=== PATIENT | male | born 1960 | race Caucasian/White ===

== ENCOUNTER 2020-03-15 01:00 | Emergency (ER) | payer BC ==
--- NOTE | 2020-03-15 02:08 | EDM.PDOC ---
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 Thi s is stable. The pt is on dialysis and he will be dialyized tomorrow. He has been very sob this pm. His weight is up. He has swelling in both legs. Onset: Gradual Duration: Hour(s): Location: Reports: Chest, Lower Extremity, Left, Lower Extremity, Right, Generalized Associated Symptoms: Reports: Shortness of Breath, Weakness - Related Data Allergies Allergy/AdvReac Type Severity Reaction Status Date / Time No Known Allergies Allergy Verified 03/15/20 01:04 Home Meds: Home Meds Calcium Acetate 2 tab PO TIDMEALS 03/15/20 [History] Escitalopram [Lexapro] 10 mg PO DAILY 03/15/20 [History] Gabapentin [Neurontin] 100 mg PO BID 03/15/20 [History] Insulin Aspart [NovoLOG] 0 - 9 unit SUBCUT WITHMEALSANDBED 03/15/20 [History] Insulin Glargine,Hum.Rec.Anlog [Basaglar Kwikpen U-100] 10 unit SQ BID 03/15/20 [History] NIFEdipine [Nifedipine ER] 60 mg PO BID 03/15/20 [History] Pembrolizumab [Keytruda] 100 mg IV Q21D 03/15/20 [History] atorvaSTATin [Lipitor] 10 mg PO BEDTIME 03/15/20 [History] carvediloL [Coreg] 6.25 mg PO BID 03/15/20 [History] Past Medical History Cardiovascular History: Reports: Heart Murmur, High Cholesterol, Hypertension Genitourinary History: Reports: Dialysis, Other (See Below) Other Genitourinary History: dialysis due tomorrow Neurological History: Reports: CVA, Other (See Below) Other Neuro History: CVA December 2016- hemorrhage Psychiatric History: Reports: Anxiety Endocrine/Metabolic History: Reports: Diabetes, Type I Immunologic History: Reports: Immunosuppression Oncologic (Cancer) History: Reports: Malignant Melanoma Dermatologic History: Reports: Melanoma - Past Surgical History GI Surgical History: Reports: Colonoscopy Social & Family History - Tobacco Use Smoking Status *Q: Never Smoker - Caffeine Use Caffeine Use: Reports: Coffee - Recreational Drug Use Recreational Drug Use: No ED ROS GENERAL - Review of Systems Review Of Systems: See Below Constitutional: Reports: Weakness HEENT: Reports: No Symptoms Respiratory: Reports: Shortness of Breath Cardiovascular: Reports: No Symptoms, Dyspnea on Exertion, Edema, Palpitations Endocrine: Reports: No Symptoms GI/Abdominal: Reports: Other ( abdoman seemes tight. ) : Reports: Other (pt is on dialysis. ) Musculoskeletal: Reports: No Symptoms Skin: Reports: No Symptoms ED EXAM, GENERAL - Physical Exam Exam: See Below Free Text/Narrative:: pt appears quite sob. He has increased swelling in his ankles. He was found by ekg to be in atrial fib. He has been on vacation and has been eating slightly different. Exam Limited By: No Limitations General Appearance: Alert, Anxious, Moderate Distress, Other (pupils equal and reactive, ) Ears: Normal TMs Nose: Normal Inspection Throat/Mouth: Normal Inspection Head: Atraumatic Neck: Normal Inspection Respiratory/Chest: Decreased Breath Sounds Cardiovascular: Irregularly Irregular, Other (pt is in atrial fib. ) GI/Abdominal: Soft, Distended, Other (pt feels tight because of the increased fluid) (Male) Exam: Deferred Rectal (Males) Exam: Deferred Back Exam: Normal Inspection Extremities: Pedal Edema, Redness, Other ( the redness is chronic) Neurological: Alert, Oriented, Normal Cognition Psychiatric: Anxious Course - Vital Signs Last Recorded V/S: Last Vital Signs Temp 35.7 C L 03/15/20 03:15 Pulse 109 H 03/15/20 03:15 Resp 16 03/15/20 03:15 BP 179/79 H 03/15/20 03:15 Pulse Ox 100 03/15/20 03:15 - Orders/Labs/Meds Labs: Laboratory Tests 03/15/20 03/15/20 03/15/20 Range/Units 01:40 01:40 01:40 WBC 13.3 H (4.5-11.0) K/uL RBC 4.38 (4.30-5.90) M/uL Hgb 11.9 L (12.0-15.0) g/dL Hct 39.4 L (40.0-54.0) % MCV 90 (80-98) fL MCH 27 (27-31) pg MCHC 30 L (32-36) % Plt Count 369 (150-400) K/uL Neut % (Auto) 83 H (36-66) % Lymph % (Auto) 5 L (24-44) % [place] % (Auto) 7 H (2-6) % Eos % (Auto) 4 (2-4) % Baso % (Auto) 1 (0-1) % Sodium 133 L (140-148) mmol/L Potassium 6.7 H* (3.6-5.2) mmol/L Chloride 94 L (100-108) mmol/L Carbon Dioxide 24 (21-32) mmol/L Anion Gap 21.7 H (5.0-14.0) mmol/L BUN 80 H* (7-18) mg/dL Creatinine 9.7 H* (0.8-1.3) mg/dL Est Cr Clr Drug Dosing 8.63 mL/min Estimated GFR (MDRD) 6 L (>60) Glucose 620 H* (74-106) mg/dL Calcium 9.0 (8.5-10.1) mg/dL Total Bilirubin 0.5 (0.2-1.0) mg/dL AST 49 H (15-37) U/L ALT 49 (12-78) U/L Alkaline Phosphatase 429 H (46-116) U/L Troponin I 0.046 (0.000-0.056) ng/mL NT-Pro-B Natriuret Pep (5-125) pg/mL Total Protein 8.2 (6.4-8.2) g/dL Albumin 3.2 L (3.4-5.0) g/dL Globulin 5.0 H (2.3-3.5) g/dL Albumin/Globulin Ratio 0.6 L (1.2-2.2) TSH, Ultra Sensitive (0.358-3.740) uIU/mL 03/15/20 03/15/20 Range/Units 01:40 01:50 WBC (4.5-11.0) K/uL RBC (4.30-5.90) M/uL Hgb (12.0-15.0) g/dL Hct (40.0-54.0) % MCV (80-98) fL MCH (27-31) pg MCHC (32-36) % Plt Count (150-400) K/uL Neut % (Auto) (36-66) % Lymph % (Auto) (24-44) % [place] % (Auto) (2-6) % Eos % (Auto) (2-4) % Baso % (Auto) (0-1) % Sodium (140-148) mmol/L Potassium (3.6-5.2) mmol/L Chloride (100-108) mmol/L Carbon Dioxide (21-32) mmol/L Anion Gap (5.0-14.0) mmol/L BUN (7-18) mg/dL Creatinine (0.8-1.3) mg/dL Est Cr Clr Drug Dosing mL/min Estimated GFR (MDRD) (>60) Glucose (74-106) mg/dL Calcium (8.5-10.1) mg/dL Total Bilirubin (0.2-1.0) mg/dL AST (15-37) U/L ALT (12-78) U/L Alkaline Phosphatase (46-116) U/L Troponin I (0.000-0.056) ng/mL NT-Pro-B Natriuret Pep 20712 H (5-125) pg/mL Total Protein (6.4-8.2) g/dL Albumin (3.4-5.0) g/dL Globulin (2.3-3.5) g/dL Albumin/Globulin Ratio (1.2-2.2) TSH, Ultra Sensitive 1.559 (0.358-3.740) uIU/mL Meds: Medications Discontinued Medications Generic Name Dose Route Start Last Admin Trade Name Freq PRN Reason Stop Dose Admin Insulin Human Regular 3 unit 03/15/20 02:19 03/15/20 02:37 Humulin R IVPUSH 03/15/20 02:20 3 units ONETIME ONE Administration Insulin Human Regular 8 unit 03/15/20 02:19 03/15/20 02:40 Humulin R SUBCUT 03/15/20 02:20 8 units ONETIME ONE Administration Sodium Chloride 10 ml 03/15/20 02:18 03/15/20 02:34 Saline Flush FLUSH 10 ml ASDIRECTED PRN Administration Keep Vein Open Sodium Polystyrene Sulfonate 15 gm 03/15/20 02:33 03/15/20 02:49 Kayexalate PO 03/15/20 02:34 15 gm ONETIME ONE Administration - Re-Assessments/Exams Free Text/Narrative Re-Assessment/Exam: 03/15/20 02:32 pt has a high k. He has a glucose of over 600. he has a very high bnp. His chest xray shows fluid over load. His k is quite high at 6.7 03/15/20 02:49 p t was given insulin and kayexulate.He will be transfered by ambulance to [facility] for inpt dialysis Departure - Departure Time of Disposition: 04:40 Disposition: DC/Tfer to Acute Hospital 02 Condition: Fair Clinical Impression: Hyperkalemia, Hyperglycemia, Fluid overload, Atrial fibrillation, Renal failure - Discharge Information Referrals: PCP,None [Primary Care Provider] - Forms: ED Department Discharge Care Plan Goals: transfer to Sepsis Event Note (ED) - Evaluation Sepsis Screening Result: No Definite Risk
[2020-03-15] MEDS ORDERED: Sodium Chloride 0.9% 10 ML Syringe FLUSH PRN (02:18)
[2020-03-15] MEDS ORDERED: Insulin Regular, Human 100 Units/ML 3 ML Vial SUBCUT ONE (02:19)
[2020-03-15] MEDS ORDERED: Insulin Regular, Human 100 Units/ML 3 ML Vial IVPUSH ONE (02:19)
[2020-03-15] MEDS ORDERED: Sodium Polystyrene Sulfonate 15 GM/60 ML Susp 60 ML Bot PO ONE (02:33)
--- NOTE | 2020-03-15 11:47 | CR ---
CHEST: Portable 03/15/2020 at 2:15 AM CLINICAL HISTORY:SOB COMPARISON:None FINDINGS: Heart is enlarged. Pulmonary vascularity is cephalized. There is interstitial edema. No effusions are seen. There is a line over the left neck which appears to be a ventricular peritoneal shunt. Impression: Moderate cardiomegaly with changes of CHF.
== END 2020-03-15 04:39 ==
LOC: JP.ED 01:00
DX: I48.91 Unspecified atrial fibrillation (principal); E87.5 Hyperkalemia; E87.70 Fluid overload, unspecified; E10.65 Type 1 diabetes mellitus with hyperglycemia; N19 Unspecified kidney failure; I10 Essential (primary) hypertension; E78.00 Pure hypercholesterolemia, unspecified; F41.9 Anxiety disorder, unspecified; Z85.820 Personal history of malignant melanoma of skin; Z79.899 Other long term (current) drug therapy
CPT/HCPCS: 36415; 71045; 80053; 83880; 84443; 84484; 85025; 93005; 93010; 99285; A9270; 99284; J1815-GY